=== PATIENT | male | born 1965 | race Caucasian/White ===

== ENCOUNTER 2019-03-06 13:37 | Emergency (ER) | payer SELFPAY ==
[~2019-03-06] VITALS: Ht 172.7 cm; Wt 77.3 kg
[~2019-03-06 13:37] MED LIST: AUGMENTIN875 MG OR; CIPRO500 MG OR; DOXYCYC MONO100 M1 OR; FLEXERIL OR; HYDROCHLOROTH12.5 MG OR; LORTAB 5 OR; NAPROSYN500 MG OR; NO HOME MEDS; PERCOCET 5/325M1 TAB OR
[2019-03-06 14:15] LABS: HEMATOCRIT 44.2 % (39.0-50.0); HEMOGLOBIN 14.8 g/dl (14.0-18.0); IMMATURE GRANULOCYTES 0.5 % (0.0-5.0); MEAN CELL VOLUME 99.5 fL CALC (80.0-100.0); MEAN CORPUSCULAR HGB 33.3 pG CALC (26.0-32.0); MEAN CORPUSCULAR HGB CONC 33.5 g/L CALC (32.0-36.0); NEUT# 4.33 thou/uL (1.82-7.42); RED BLOOD COUNT 4.44 mill/uL (4.70-6.10); RED CELL DISTRI WIDTH 13.2 % (11.5-15.5)
[2019-03-06 14:32] LABS: ALBUMIN 4.6 g/dL (3.2-5.0); ALKALINE PHOSPHATASE 72 u/l (38-126); ANION GAP 17 (6-22 (CALC)); BILIRUBIN, TOTAL 0.4 mg/dL (0.0-1.4); BUN 6 mg/dL (9-20); BUN/CREATININE RATIO 8 (12-20 (CALC)); CARBON DIOXIDE 23 mmol/l (22-30); CHLORIDE 102 mmol/l (95-108); CREATININE 0.8 mg/dL (0.7-1.3); ETHYL ALCOHOL 159 mg/dl (0-30); GFR > 60 ML/MIN (>=60 (CALC)); GFR FOR AFR.AMER. > 60 ML/MIN (>=60 (CALC)); POTASSIUM 3.7 mmol/l (3.5-5.1); SGOT/AST 57 u/l (17-59); SODIUM 139 mmol/l (137-146); TOTAL PROTEIN 7.9 g/dL (6.3-8.2)
[2019-03-06 15:05] LABS: URINE BILIRUBIN - DIPSTICK NEGATIVE (NEGATIVE); URINE BLOOD DIPSTICK NEGATIVE (NEGATIVE); URINE COLOR YELLOW; URINE GLUCOSE - DIPSTICK NEGATIVE (NEGATIVE); URINE KETONE NEGATIVE (NEGATIVE); URINE LEUK ESTERASE NEGATIVE (Negative); URINE NITRITE - DIPSTICK NEGATIVE (Negative); URINE PROTEIN - DIPSTICK NEGATIVE (NEG-TRACE); URINE SPECIFIC GRAVITY <=1.005; URINE UROBILINOGEN - DIPSTICK 0.2 E.U./dL (0.2)
[2019-03-06 15:07] LABS: BARBITURATES NEGATIVE (NEGATIVE); COCAINE NEGATIVE (NEGATIVE); METHADONE NEGATIVE (NEGATIVE); OXCYCODONE POSITIVE (NEGATIVE); TETRAHYDROCANNABIONOL NEGATIVE (NEGATIVE); TRICYLIC ANTIDEPRESSANTS NEGATIVE (NEGATIVE)
[2019-03-06 15:09] LABS: URINE CLARITY CLEAR
[2019-03-06] MEDS ORDERED: PERCOCET 10/31 COMBO PO (15:30)
[2019-03-06] MEDS ORDERED: LISINOPRIL10 MG PO (15:46)
[2019-03-06 16:10] VITALS: BP 153/98
== END 2019-03-06 16:10 | disposition home or self-care (01) | DRG 552 ==
LOC: ED 13:37
DX: M54.2 Cervicalgia (principal); I10 Essential (primary) hypertension; F17.220 Nicotine dependence, chewing tobacco, uncomplicated; F17.210 Nicotine dependence, cigarettes, uncomplicated; V59.50XA Passenger in pick-up truck or van injured in collision with unspecified motor vehicles in traffic accident, initial encounter

== ENCOUNTER 2022-03-03 07:48 | Emergency (ER) | payer SELFPAY ==
[~2022-03-03] VITALS: Ht 172.7 cm; Wt 90.0 kg
[~2022-03-03 07:48] MED LIST changes: +LISINOPRIL10 MG PO; +PERCOCET 10/31 COMBO PO
[2022-03-03 08:27] LABS: IMMATURE GRANULOCYTES 0.1 % (0.0-5.0); MEAN CORPUSCULAR HGB 27.1 pG CALC (26.0-32.0); MEAN CORPUSCULAR HGB CONC 29.8 g/dL CAL (32.0-36.0); NEUT# 3.26 thou/uL (1.82-7.42); RED BLOOD COUNT 4.09 mill/uL (4.70-6.10); RED CELL DISTRI WIDTH 17.3 % (11.5-15.5)
[2022-03-03 08:36] LABS: HEMATOCRIT 37.2 % (39.0-50.0); HEMOGLOBIN 11.1 g/dl (14.0-18.0)
[2022-03-03 08:41] LABS: ALBUMIN 4.2 g/dL (3.2-5.0); ALKALINE PHOSPHATASE 71 u/l (38-126); ANION GAP 13 (6-22 (CALC)); BILIRUBIN, TOTAL 0.3 mg/dL (0.0-1.4); BUN 6 mg/dL (9-20); BUN/CREATININE RATIO 7 (12-20 (CALC)); CARBON DIOXIDE 24 mmol/l (22-30); CHLORIDE 103 mmol/l (95-108); CREATININE 0.9 mg/dL (0.7-1.3); GFR FOR AFR.AMER. > 60 ML/MIN (>=60 (CALC)); GFR OTHER RACES > 60 ML/MIN (>=60 (CALC)); POTASSIUM 4.3 mmol/l (3.5-5.1); SGOT/AST 48 u/l (17-59); SODIUM 136 mmol/l (137-146); TOTAL PROTEIN 7.9 g/dL (6.3-8.2)
[2022-03-03 11:40] VITALS: BP 184/97
== END 2022-03-03 11:50 | disposition left against medical advice (07) | DRG 313 ==
LOC: ED 07:48
PROVIDERS: Family Medicine
DX: R07.9 Chest pain, unspecified (principal); I10 Essential (primary) hypertension; F17.200 Nicotine dependence, unspecified, uncomplicated; Z91.19 Patient's noncompliance with other medical treatment and regimen; Z20.822 Contact with and (suspected) exposure to COVID-19

== ENCOUNTER 2023-09-28 07:48 | Observation (INO) | payer BC ==
[2023-09-28] VITALS (36 sets, daily range): BP systolic 106–163; BP diastolic 68–105
[~2023-09-28] VITALS: Ht 172.7 cm; Wt 89.2 kg
--- NOTE | 2023-09-28 07:50 | NUR ---
PT TO ROOM VIA EMS
[2023-09-28] MEDS ORDERED: SODIUM CHLORIDE 0.9% 1,000 ML IV ONE (08:00)
[2023-09-28] MEDS ORDERED: NITROGLYCERIN 2% OINT UD 1 GM/PAK TD ONE (08:00)
--- NOTE | 2023-09-28 08:30 | NUR ---
IN ROOM TO MEDICATE PT PER EMAR, PAIN 5/10, NAD NOTED, VSS, CALL LIGHT IN REACH.
[2023-09-28 08:44] LABS: BASO% 0.8 % (0-3); EOS% 1.5 % (0-8); HEMATOCRIT 35.3 % (39.0-50.0); HEMOGLOBIN 10.2 g/dl (14.0-18.0); IMMATURE GRANULOCYTES 0.3 % (0.0-5.0); LYMPH% 14.6 % (15-41); MEAN CORPUSCULAR HGB 22.3 pG CALC (26.0-32.0); MEAN CORPUSCULAR HGB CONC 28.9 g/dL CAL (32.0-36.0); MONO% 7.2 % (2-13); NEUT# 6.85 thou/uL (1.82-7.42); NEUT% 75.6 % (42-76); RED BLOOD COUNT 4.58 mill/uL (4.70-6.10); RED CELL DISTRI WIDTH 19.6 % (11.5-15.5)
[2023-09-28 08:46] LABS: MEAN CELL VOLUME 77.1 fL CALC (80.0-100.0)
[2023-09-28 08:52] LABS: ALBUMIN 4.3 g/dL (3.2-5.0); ALKALINE PHOSPHATASE 78 u/l (38-126); BILIRUBIN, TOTAL 0.3 mg/dL (0.2-1.3); BUN 8 mg/dL (9-20); BUN/CREATININE RATIO 10 (12-20 (CALC)); CHLORIDE 103 mmol/l (95-108); CREATININE 0.9 mg/dL (0.7-1.3); GFR FOR AFR.AMER. > 60 ML/MIN (>=60 (CALC)); GFR OTHER RACES > 60 ML/MIN (>=60 (CALC)); POTASSIUM 4.1 mmol/l (3.5-5.1); SODIUM 134 mmol/l (137-146); TOTAL PROTEIN 7.7 g/dL (6.3-8.2)
[2023-09-28 08:55] LABS: ANION GAP 16 (6-22 (CALC)); CARBON DIOXIDE 19 mmol/l (22-30)
[2023-09-28 08:56] LABS: SGOT/AST 87 u/l (17-59)
[2023-09-28 09:04] LABS: ACT PARTIAL THROMBO TIME 22.5 SECONDS (20.0-32.5); INTERNATIONAL NORMALIZED RATIO 1.1 RATIO (0.7-1.3); PROTHROMBIN TIME 10.2 SECONDS (9.0-12.5)
--- NOTE | 2023-09-28 09:30 | NUR ---
Reassessment of patient completed. No distress noted. VSS, REPORTS NO CHANGE IN PAIN 10/22, CALL LIGHT IN REACH.
--- NOTE | 2023-09-28 10:03 | NUR ---
Reassessment of patient completed. No distress noted. PT STILL C/O CHEST PAIN 12/22, VSS, CALL LIGHT IN REACH, PROVIDER NOTIFIED.
[2023-09-28] MEDS ORDERED: ONDANSETRON HCl 4 MG/2 ML SDV IV ONE (10:10)
[2023-09-28] MEDS ORDERED: HYDROmorphone HCL 2 MG/AMP IV ONE (10:10)
--- NOTE | 2023-09-28 10:22 | NUR ---
IN ROOM TO MEDICATE PT PER EMAR FOR PAIN 01/22, NAD NOTED, VSS, CALL LIGHT IN REACH, FAMILY IN ROOM.
--- NOTE | 2023-09-28 11:00 | NUR ---
Reassessment of patient completed. No distress noted. VSS, PT BEING TAKEN TO CT/US FOR TESTING.
[2023-09-28 11:38] LABS: D-DIMER 0.6 mg/L (0.19-0.60)
--- NOTE | 2023-09-28 12:15 | NUR ---
PT SITTING UP IN BED, A&O X 3, NAD NOTED, VSS, CALL LIGHT IN REACH, FAMILY IN ROOM.
--- NOTE | 2023-09-28 12:18 | NUR ---
DR. BEEBE AT BEDSIDE FOR EXAM.
[2023-09-28] MEDS ORDERED: SODIUM CHLORIDE 0.9% 1,000 ML IV PRN (13:15)
[2023-09-28] MEDS ORDERED: MAGNESIUM HYDROXIDE 30 ML UDC PO PRN (13:15)
[2023-09-28] MEDS ORDERED: ACETAMINOPHEN 325 MG/TAB PO PRN (13:15)
[2023-09-28] MEDS ORDERED: ASPIRIN 81 MG/TAB PO ONE (13:20)
[2023-09-28] MEDS ORDERED: NITROGLYCERIN 0.4 MG/TAB SL PRN (13:20)
[2023-09-28] MEDS ORDERED: MORPHINE SULFATE 4 MG/ML VIAL IV PRN (13:20)
[2023-09-28] MEDS ORDERED: ONDANSETRON HCl 4 MG/2 ML SDV IV PRN (13:25)
--- NOTE | 2023-09-28 14:35 | NUR ---
Reassessment of patient completed. No distress noted. VSS, CALL LIGHT IN REACH, ADVISED WAIT TIME FOR ROOM ON MS2, FAMILY IN ROOM.
[2023-09-28] MEDS ORDERED: METOPROLOL TARTRATE 25 MG/TAB PO SCH (15:00)
[2023-09-28] MEDS ORDERED: PANTOPRAZOLE SODIUM Sesquihydr 40 MG/TAB PO SCH (15:00)
--- NOTE | 2023-09-28 16:35 | NUR ---
REPORT CALLED TO MELONY ON MS2 NURSE FOR ROOM 272, ADVISED PT COMING UP ON TELE # 16.
--- NOTE | 2023-09-28 16:45 | NUR ---
PT TAKEN TO MS2 ROOM 272 VIA W/C ON TELE #16, NAD NOTED, VSS, ALL BELONGINGS SENT WITH PT TO MS2 ROOM 272.
--- NOTE | 2023-09-28 17:35 | NUR ---
PT ARRIVED TO [facility] VIA WHEEL CHAIR. A/OX3 AMBULATORY . RESPIRATIONS ON ROOM AIR. HEART MONITOR ON TELE. IV SITE CARE NOTED. PT DENIED PROBLEMS VOIDING LAST BM TODAY. PT DENIES SKIN ISSUES. PT DENIES ADDITIONAL NEEDS AT THE TIME ALL SAFETY PRECAUTIONS IN PLACE WITH CALL LIGHT IN REACH.
--- NOTE | 2023-09-28 18:07 | NUR ---
AT 1807 HRS, I CONTACTED THE [facility]. I SPOKE WITH NONI IN REFERENCE TO CHECKING FOR A POTENTIAL TRANSFER TO THEIR HOSPITAL. I PROVIDED A SUMMARY FOR THE PATIENT AND A DX FOR TRANSFER OF UNSTABLE PERSISTENT ANGINA. AT 1828 HRS, [facility] CALLED BACK AND REQUESTED A FACESHEET BE FAXED TO THE TRANSFER CENTER. ITEM WAS FAXED AT 1834 HRS.
[2023-09-28] MEDS ORDERED: CLOPIDOGREL BISULFATE 75 MG/TAB TAB PO SCH (18:15)
--- NOTE | 2023-09-28 18:21 | NUR ---
PT NOTFIED OF BRUSH OR BROOM CUTTER CONSULT RECOMMENDING HIGHER LEVEL OF CARE TO OUR HOSPITALIST. PT AWARE. STATING UNDERSTANDING.
--- NOTE | 2023-09-28 18:28 | NUR ---
PROVIDER CALLED [facility] NOTIFY STAFF OF PT TO BE TRANSFERED TO [facility] FOR FURTHER CARDIAC WORK UP . TRANSFER PENDING.
--- NOTE | 2023-09-28 19:25 | NUR ---
PATIENT RESTING IN BED AT THIS TIME-AWAKE ALERT AND ORIENTEDX3. PATIENT TO BE TRANSFERRED TO [facility] TONIGHT. AWAITING CALL FROM [facility] WITH BED ASSIGNMENT. PATIENT IS AWARE. IVF NS PATENT AND INFUSING VIA LAC SITE AT 80CC/HR. TELE MONITOR #[address] CALL LIGHT IN REACH. WILL CONT TO MONITOR.
--- NOTE | 2023-09-28 20:30 | NUR ---
RECEIVED CALL FROM MELODIE FROM [facility] WITH BED ASSIGNMENT[place] [place] [address] IBRAHIMA MONK. MEDICAL RECORD IS COPIED AND RADIOLOGY DISC CALLED FOR-SPOKE WITH [facility] WHO WILL PREPARE THE DISC FOR TRANSFER. PATIENT ADVISED OF TRANSFER-ROOM ASSIGNMENT AND ETA. VERBALIZES UNDERSTANDING. PATIENT STATES SOME PAIN RELIEF FROM MDRPHINE GIVEN EARLIER. RESTING IN BED AT THIS TIME. CALL LIGHT IN REACH, WILL CONT TO MONITOR.
[2023-09-28] MEDS ORDERED: ATORVASTATIN CALCIUM 40 MG/TAB PO SCH (21:00)
[2023-09-28] MEDS ORDERED: ENOXAPARIN SODIUM 40 MG/0.4 ML SYR SC SCH (21:00)
--- NOTE | 2023-09-28 22:00 | NUR ---
PATIENT RESTING IN BED-[facility] HERE FOR TRANSPORT TO [facility]./ TELE MONITOR REMOVED. PATIENT REMAINS WITH IV SITE TO [facility]. PATIENT TRANSFERRED VIA STRETCHER WITH [facility] STAFF-PACKET GIVEN TO TRANSPORT STAFF. REPORT CALLED TO CARMENZA VILLARREAL THROUGH [facility] [id number].
[2023-09-29] MEDS ORDERED: ASPIRIN 81 MG/TAB PO SCH (09:00)
== END 2023-09-28 22:00 | disposition short-term general hospital (02) | DRG 311 ==
LOC: ED 07:48 → MS2 12:35
PROVIDERS: Emergency Medicine; ADMIT Student in an Organized Health Care Education/Training Program; ATTEND Student in an Organized Health Care Education/Training Program
DX: I20.0 Unstable angina (principal); D50.9 Iron deficiency anemia, unspecified; I10 Essential (primary) hypertension; R79.89 Other specified abnormal findings of blood chemistry; F10.20 Alcohol dependence, uncomplicated; E66.9 Obesity, unspecified; F17.290 Nicotine dependence, other tobacco product, uncomplicated; Z68.36 Body mass index [BMI] 36.0-36.9, adult
CPT/HCPCS: G0378; J1650; Q9967

== ENCOUNTER 2024-03-07 07:23 | Emergency (ER) | payer SELFPAY ==
[~2024-03-07] VITALS: Ht 172.7 cm; Wt 90.0 kg
[~2024-03-07 07:23] MED LIST changes: +AMLODIPINE BESYL5 MG PO; +ASPIRIN81 MG PO; +ATORVASTATIN CA40 MG PO; +FLEXERIL5 M1 PO; +LIDOCAINE PAIN RE4 % TD; +PANTOPRAZOLE SO40 M1 PO; +PLAVIX75 MG PO; +TOPROL XL25 M1 PO
[2024-03-07] MEDS ORDERED: ONDANSETRON HCl 4 MG/2 ML SDV IV ONE (07:40)
[2024-03-07] MEDS ORDERED: SODIUM CHLORIDE 0.9% 1,000 ML IV ONE ×2 (07:40→08:45)
[2024-03-07 07:48] VITALS: BP 132/93
[2024-03-07 07:56] LABS: BASO% 0.7 % (0-3); EOS% 0.9 % (0-8); IMMATURE GRANULOCYTES 0.4 % (0.0-5.0); LYMPH% 32.8 % (15-41); MEAN CELL VOLUME 79.5 fL CALC (80.0-100.0); MEAN CORPUSCULAR HGB 23.4 pG CALC (26.0-32.0); MEAN CORPUSCULAR HGB CONC 29.4 g/dL CAL (32.0-36.0); MONO% 10.7 % (2-13); NEUT# 2.44 thou/uL (1.82-7.42); NEUT% 54.5 % (42-76); RED BLOOD COUNT 5.13 mill/uL (4.70-6.10); RED CELL DISTRI WIDTH 19.4 % (11.5-15.5)
[2024-03-07 07:57] LABS: HEMATOCRIT 40.8 % (39.0-50.0)
[2024-03-07 08:00] VITALS: BP 139/91
[2024-03-07 08:12] LABS: ALBUMIN 4.2 g/dL (3.2-5.0); BILIRUBIN, TOTAL 0.5 mg/dL (0.2-1.3); CREATININE 0.8 mg/dL (0.7-1.3); POTASSIUM 3.8 mmol/l (3.5-5.1); TOTAL PROTEIN 7.5 g/dL (6.3-8.2)
[2024-03-07 08:31] VITALS: BP 159/79
[2024-03-07 09:00] VITALS: BP 125/87
[2024-03-07] MEDS ORDERED: PAXLOVID PO (09:45)
[2024-03-07 09:51] VITALS: BP 125/87
== END 2024-03-07 09:51 | disposition home or self-care (01) | DRG 179 ==
LOC: ED 07:23
PROVIDERS: Family Medicine
DX: U07.1 COVID-19 (principal); R11.2 Nausea with vomiting, unspecified; R19.7 Diarrhea, unspecified; I10 Essential (primary) hypertension; I25.10 Atherosclerotic heart disease of native coronary artery without angina pectoris; F17.290 Nicotine dependence, other tobacco product, uncomplicated; Z95.5 Presence of coronary angioplasty implant and graft

== ENCOUNTER 2024-03-12 10:22 | Inpatient (IN) | payer SELFPAY ==
[2024-03-12] VITALS (52 sets, daily range): BP systolic 110–186; BP diastolic 63–130
[~2024-03-12] VITALS: Ht 172.7 cm; Wt 81.5 kg
[~2024-03-12 10:22] MED LIST changes: +PAXLOVID PO
[2024-03-12 10:45] LABS: BASO% 0.4 % (0-3); EOS% 0.9 % (0-8); HEMATOCRIT 40.9 % (39.0-50.0); HEMOGLOBIN 12.3 g/dl (14.0-18.0); IMMATURE GRANULOCYTES 0.3 % (0.0-5.0); LYMPH% 26.6 % (15-41); MEAN CELL VOLUME 79.1 fL CALC (80.0-100.0); MEAN CORPUSCULAR HGB 23.8 pG CALC (26.0-32.0); MEAN CORPUSCULAR HGB CONC 30.1 g/dL CAL (32.0-36.0); MONO% 12.5 % (2-13); NEUT# 4.66 thou/uL (1.82-7.42); NEUT% 59.3 % (42-76); RED BLOOD COUNT 5.17 mill/uL (4.70-6.10); RED CELL DISTRI WIDTH 19.5 % (11.5-15.5)
[2024-03-12 11:06] LABS: ALBUMIN 4.4 g/dL (3.2-5.0); BILIRUBIN, TOTAL 0.7 mg/dL (0.2-1.3); POTASSIUM 3.7 mmol/l (3.5-5.1); PROTHROMBIN TIME 9.9 SECONDS (9.0-12.5); TOTAL PROTEIN 7.9 g/dL (6.3-8.2)
[2024-03-12 11:09] LABS: CHOLESTEROL HDL RATIO 2.5 (<4.4 (CALC))
[2024-03-12 12:07] LABS: URINE BLOOD DIPSTICK Negative (NEGATIVE); URINE GLUCOSE - DIPSTICK Negative (NEGATIVE); URINE KETONE 15 mg/dL (NEGATIVE); URINE LEUK ESTERASE Negative (NEGATIVE); URINE NITRITE - DIPSTICK Negative (Negative); URINE PROTEIN - DIPSTICK Negative (NEG-TRACE)
[2024-03-12 12:16] LABS: URINE COLOR Yellow
[2024-03-12] MEDS ORDERED: DEXTROSE 250 ML IV PRN (13:20)
[2024-03-12] MEDS ORDERED: SODIUM CHLORIDE 0.9% 1,000 ML IV PRN (13:20)
[2024-03-12] MEDS ORDERED: MAGNESIUM HYDROXIDE 30 ML UDC PO PRN (13:20)
[2024-03-12] MEDS ORDERED: ACETAMINOPHEN 325 MG/TAB PO PRN (13:20)
[2024-03-12] MEDS ORDERED: PANTOPRAZOLE SODIUM Sesquihydr 40 MG/TAB PO SCH (21:00)
[2024-03-12] MEDS ORDERED: ATORVASTATIN CALCIUM 40 MG/TAB PO SCH (21:00)
[2024-03-13] VITALS (49 sets, daily range): BP systolic 82–193; BP diastolic 49–121
[2024-03-13 04:43] LABS: BASO% 0.8 % (0-3); EOS% 1.8 % (0-8); HEMATOCRIT 36.3 % (39.0-50.0); IMMATURE GRANULOCYTES 0.2 % (0.0-5.0); LYMPH% 33.5 % (15-41); MEAN CORPUSCULAR HGB 24.2 pG CALC (26.0-32.0); MEAN CORPUSCULAR HGB CONC 30.3 g/dL CAL (32.0-36.0); MONO% 14.7 % (2-13); RED BLOOD COUNT 4.54 mill/uL (4.70-6.10); RED CELL DISTRI WIDTH 19.5 % (11.5-15.5)
[2024-03-13 04:55] LABS: BILIRUBIN, TOTAL 0.5 mg/dL (0.2-1.3); CREATININE 0.9 mg/dL (0.7-1.3); POTASSIUM 3.6 mmol/l (3.5-5.1); TOTAL PROTEIN 6.5 g/dL (6.3-8.2)
[2024-03-13 04:57] LABS: ALBUMIN 3.4 g/dL (3.2-5.0)
[2024-03-13] MEDS ORDERED: CLARIFY DOSE IV PRN (06:05)
[2024-03-13] MEDS ORDERED: ASPIRIN 81 MG/TAB PO SCH (09:00)
[2024-03-13] MEDS ORDERED: CLOPIDOGREL BISULFATE 75 MG/TAB TAB PO SCH (09:00)
[2024-03-13] MEDS ORDERED: METOPROLOL SUCCINATE 25 MG/TAB-TOPROL XL PO SCH (09:00)
[2024-03-13] MEDS ORDERED: amLODIPine BESYLATE 5 MG/TAB PO SCH (09:00)
[2024-03-13] MEDS ORDERED: ATORVASTATIN CALCIUM 40 MG/TAB PO SCH (21:00)
[2024-03-13] MEDS ORDERED: TICAGRELOR BASE 90 MG TAB PO SCH (21:00)
[2024-03-14] VITALS (38 sets, daily range): BP systolic 101–171; BP diastolic 64–93
[2024-03-14] MEDS ORDERED: traMADol HCL 50 MG/TAB PO PRN (12:40)
[2024-03-15] VITALS (11 sets, daily range): BP systolic 131–165; BP diastolic 70–97
[2024-03-15 04:47] LABS: HEMATOCRIT 36.7 % (39.0-50.0); MEAN CELL VOLUME 80.5 fL CALC (80.0-100.0); MEAN CORPUSCULAR HGB 24.1 pG CALC (26.0-32.0); RED BLOOD COUNT 4.56 mill/uL (4.70-6.10); RED CELL DISTRI WIDTH 19.3 % (11.5-15.5)
[2024-03-15 05:18] LABS: ALBUMIN 3.3 g/dL (3.2-5.0); BILIRUBIN, TOTAL 0.6 mg/dL (0.2-1.3); CREATININE 0.8 mg/dL (0.7-1.3); MAGNESIUM 1.7 mg/dL (1.6-2.3); POTASSIUM 3.7 mmol/l (3.5-5.1); TOTAL PROTEIN 6.2 g/dL (6.3-8.2)
[2024-03-15] MEDS ORDERED: PLAVIX75 MG PO (07:29)
[2024-03-15] MEDS ORDERED: PANTOPRAZOLE SO40 M1 PO (07:30)
[2024-03-15] MEDS ORDERED: AMLODIPINE BESYL5 MG PO (07:30)
[2024-03-15] MEDS ORDERED: ATORVASTATIN CA40 MG PO (07:30)
[2024-03-15] MEDS ORDERED: TOPROL XL25 M1 PO (07:30)
[2024-03-15] MEDS ORDERED: ASPIRIN81 MG PO (07:30)
[2024-03-15] MEDS ORDERED: CLOPIDOGREL BISULFATE 75 MG/TAB TAB PO SCH (09:00)
== END 2024-03-15 11:50 | disposition home or self-care (01) | DRG 64 ==
LOC: ED 10:22 → ED-I 12:52 → ED 12:58 → ICU 12:59
PROVIDERS: Family Medicine; Nurse Practitioner Family; ADMIT Internal Medicine; ATTEND Internal Medicine
DX: I63.512 Cerebral infarction due to unspecified occlusion or stenosis of left middle cerebral artery (principal); U07.1 COVID-19; R47.01 Aphasia; R26.89 Other abnormalities of gait and mobility; R53.1 Weakness; R41.82 Altered mental status, unspecified; R29.714 NIHSS score 14; I10 Essential (primary) hypertension; I25.10 Atherosclerotic heart disease of native coronary artery without angina pectoris; K21.9 Gastro-esophageal reflux disease without esophagitis; K76.0 Fatty (change of) liver, not elsewhere classified; Z87.891 Personal history of nicotine dependence; Z79.02 Long term (current) use of antithrombotics/antiplatelets; Z79.82 Long term (current) use of aspirin; Z95.5 Presence of coronary angioplasty implant and graft
CPT/HCPCS: Q9967